=== PATIENT | male | born 1950 | race Caucasian/White ===

== ENCOUNTER 2024-06-14 12:11 | Inpatient (IN) | payer OTHER, MEDICARE ==
[~2024-06-14] VITALS: Ht 175.3 cm; Wt 84.4 kg
[2024-06-14] MEDS: VANCOMYCIN 1 GM in IV D5W 250 ML IV ONE (12:30)
[2024-06-14 12:40] LABS: BASOPHILS % (AUTO) 0.1 % (0.0-2.0); EOSINOPHILS % (AUTO) 0.3 % (0.0-6.0); HEMATOCRIT 33 % (39-51); HEMOGLOBIN 11.4 g/dL (13.5-17.5); LYMPHOCYTES # (AUTO) 0.3 K/uL (0.8-4.8); LYMPHOCYTES % (AUTO) 2.7 % (20.0-44.0); MEAN CORPUSCULAR HEMOGLOBIN 34 PG (26.0-33.0); MEAN CORPUSCULAR HGB CONC 34 g/dl (31.0-36.0); MEAN CORPUSCULAR VOLUME 98 fL (80-96); MONOCYTES # (AUTO) 1.2 K/uL (0.1-1.30); MONOCYTES % (AUTO) 10.4 % (2.0-12.0); NEUTROPHILS % (AUTO) 86.5 % (43.0-81.0); PLATELET COUNT (AUTO) 313 K/uL (150-450); RED BLOOD CELL COUNT(AUTO) 3.39 MIL/uL (4.5-6.0); RED CELL DISTRIBUTION WIDTH 12.9 % (11.5-15.0); WHITE BLOOD COUNT (AUTO) 11.5 K/uL (4.3-11.0)
[2024-06-14] MEDS: IV NS 0.9% 1,000 ML BAG IV ONE (12:46)
[2024-06-14 12:54] LABS: ABG BASE EXCESS 0.6 mmol/L (-2.0-3.0); ABG OXYGEN SATURATION 95.8 % (94.0-98.0); ABG PCO2 33.7 mmHg (35.0-48.0); ABG PH 7.468 (7.350-7.450); ABG PO2 87.8 mmHg (83.0-108.0); ABG TOTAL HEMOGLOBIN 11.6 G/dL (13.5-17.5); COHb 0.3 % (0.5-1.5); MetHb 0.2 % (0.0-1.5); O2Hb 95.3 % (94.0-97.0); PEEP,BG 5 cm H2O; SITE, ABG RIGHT RADIAL; VT, ABG 450 mL
[2024-06-14 13:03] LABS: LACTIC ACID 1.6 mmol/L (0.4-2.0)
[2024-06-14] MEDS: CEFEPIME 1 GM in IV D5W 50 ML IV ONE (13:07)
[2024-06-14 13:12] LABS: ALANINE AMINOTRANSFERASE 55 U/L (12-78); ALBUMIN 1.9 g/dL (3.4-5.0); ALKALINE PHOSPHATASE 294 U/L (46-116); ASPARTATE AMINOTRANSFERASE 57 U/L (15-37); BILIRUBIN,DIRECT 0.3 mg/dL (0.0-0.2); BILIRUBIN,TOTAL 0.5 mg/dL (0.2-1.0); CALCIUM, SERUM 9.2 mg/dL (8.5-10.1); CARBON DIOXIDE 32 mmol/L (21-32); CHLORIDE 104 mmol/L (98-107); CREATININE 0.8 mg/dL (0.6-1.3); GLUCOSE 143 mg/dL (74-106); POTASSIUM 4.1 mmol/L (3.5-5.1); SODIUM SERUM 141 mmol/L (136-145); TOTAL PROTEIN, SERUM 7.1 g/dL (6.4-8.2); UREA NITROGEN, BLOOD 21 mg/dL (7-18)
[2024-06-14 13:14] LABS: INR 1.18 (0.91-1.10); PARTIAL THROMBOPLASTIN TIME 26.5 SEC (24.3-34.3); PROTHROMBIN TIME 12.4 SECS (9.2-11.1)
[2024-06-14] MEDS ORDERED: ENOX40DI9 SQ (13:17)
[2024-06-14] MEDS ORDERED: CHLO118L3 MM (13:17)
[2024-06-14] MEDS ORDERED: OSMOLITE 1.5 GT (13:17)
[2024-06-14] MEDS ORDERED: DOCU100T2 GT (13:17)
[2024-06-14] MEDS ORDERED: LEVE100S GT (13:17)
[2024-06-14] MEDS ORDERED: FURO-145 GT (13:17)
[2024-06-14] MEDS ORDERED: AMIN30LI66 GT (13:17)
[2024-06-14] MEDS ORDERED: DOXA2TAB2 GT (13:17)
[2024-06-14] MEDS ORDERED: MAGN400O6 GT (13:17)
[2024-06-14] MEDS ORDERED: AMLO10TA4 GT (13:17)
[2024-06-14] MEDS ORDERED: CICL60SU2 TP (13:17)
[2024-06-14] MEDS ORDERED: CLOB10TA3 GT (13:17)
[2024-06-14] MEDS ORDERED: TAMS-12 GT (13:17)
[2024-06-14] MEDS ORDERED: FAMO20TA80 GT (13:17)
[2024-06-14] MEDS ORDERED: IPRA4AER IH ×2 (13:17)
[2024-06-14] MEDS ORDERED: METO25TA6 GT (13:17)
[2024-06-14] MEDS ORDERED: BETA45CR3 TP (13:17)
[2024-06-14] MEDS ORDERED: MULT-213 GT (13:17)
[2024-06-14] MEDS ORDERED: LACO10SO GT (13:17)
[2024-06-14] MEDS ORDERED: VALP250S4 GT (13:17)
[2024-06-14] MEDS ORDERED: CYAN-51 GT (13:17)
[2024-06-14] MEDS ORDERED: BISA10SU11 RC (13:17)
[2024-06-14] MEDS ORDERED: MERO1VIA23 IV (13:17)
[2024-06-14] MEDS ORDERED: ACET-868 GT (13:17)
[2024-06-14] MEDS ORDERED: NA P133E RC (13:17)
[2024-06-14] MEDS ORDERED: ASCO-340 GT (13:17)
[2024-06-14] MEDS ORDERED: ZINC50TA69 GT (13:17)
[2024-06-14] MEDS ORDERED: ACETAMINOPHEN 650 MG/20.3 ML UDC ONE (13:29)
[2024-06-14 13:38] LABS: APPEARANCE,URINE CLEAR (CLEAR); BILIRUBIN,URINE NEGATIVE (NEGATIVE); BLOOD, URINE 2+ Ery/uL (NEGATIVE); COLOR,URINE YELLOW (YELLOW); KETONES,URINE TRACE mg/dL (NEGATIVE); LEUKOCYTE ESTERASE ,URINE 1+ (NEGATIVE); NITRITE, URINE POSITIVE (NEGATIVE); PROTEIN,URINE TRACE mg/dl (NEGATIVE); UGLUCOSE NEGATIVE (NEGATIVE)
[2024-06-14] MEDS: ACETAMINOPHEN 160 MG/5 ML GT STA (13:43)
[2024-06-14 13:50] LABS: ADD URINE CULTURE YES; BACTERIA,URINE Few /HPF (None Seen); RBC,URINE 51-80 /HPF (0-2); SQUAMOUS EPITHELIAL CELL,UR None Seen /HPF (None Seen); WBC,URINE 21-50 /HPF (0-3)
[2024-06-14] MEDS ORDERED: ENOXAPARIN SODIUM 40 MG/0.4 ML DISP.SYRIN SQ ONE (15:27)
[2024-06-14] MEDS: ENOXAPARIN SODIUM 40 MG/0.4 ML DISP.SYRIN SQ SCH (15:31)
[2024-06-14] MEDS ORDERED: Z GUARD REMEDY 4 OZ OINT TP PRN (16:00)
[2024-06-14] MEDS ORDERED: BISACODYL SUPP (10 MG) 10 MG/SUPP.RECT SUPP.RECT RC PRN (16:00)
[2024-06-14] MEDS ORDERED: ONDANSETRON HCL/PF 4 MG/2 ML VIAL IVP PRN (16:00)
[2024-06-14] MEDS ORDERED: CLOBAZAM 10 MG GT SCH (17:00)
[2024-06-14 18:00] VITALS: BP 124/59; TEMP 98.1; O2SAT 98
[2024-06-14] MEDS: CHLORHEXIDINE GLUCONATE 4% 118 ML BOTTLE TP SCH (18:10)
[2024-06-14] MEDS: ASCORBIC ACID 500 MG TABLET GT SCH (18:10)
[2024-06-14] MEDS: VALPROIC ACID 250 MG/5 ML UDC GT SCH (18:10)
[2024-06-14] MEDS: PROSOURCE / PROSTAT (PYXIS) 30 ML UDC GT SCH (18:10)
[2024-06-14] MEDS: ZINC SULFATE 220 MG CAPSULE GT SCH (18:10)
[2024-06-14 20:00] VITALS: BP 127/69; TEMP 98.8; O2SAT 98
[2024-06-14] MEDS: VANCOMYCIN 1 GM in IV D5W 250 ML IV SCH (20:19)
[2024-06-14] MEDS: LEVETIRACETAM SOL (5 ML) 100 MG/ML UDC GT SCH (21:03)
[2024-06-14] MEDS: LACOSAMIDE ORAL SOLN 50 MG/5 ML UDC GT SCH (21:07)
[2024-06-14] MEDS: CEFEPIME 2 GM in IV D5W 100 ML IV SCH (21:08)
[2024-06-14] MEDS: DOXAZOSIN MESYLATE (1 MG) 1 MG TABLET GT SCH (21:39)
[2024-06-15] VITALS: BP 135/75; TEMP 98.8; O2SAT 98
[2024-06-15 04:00] VITALS: BP 122/70; TEMP 99.7; O2SAT 98
[2024-06-15 08:00] VITALS: BP 125/62; TEMP 98.6; O2SAT 99
[2024-06-15 08:19] LABS: BASOPHILS % (AUTO) 0.1 % (0.0-2.0); EOSINOPHILS # (AUTO) 0.2 K/uL (0.0-0.7); EOSINOPHILS % (AUTO) 2.2 % (0.0-6.0); HEMATOCRIT 30 % (39-51); LYMPHOCYTES # (AUTO) 1.1 K/uL (0.8-4.8); LYMPHOCYTES % (AUTO) 11.8 % (20.0-44.0); MEAN CORPUSCULAR HEMOGLOBIN 33 PG (26.0-33.0); MEAN CORPUSCULAR HGB CONC 34 g/dl (31.0-36.0); MEAN CORPUSCULAR VOLUME 99 fL (80-96); MONOCYTES % (AUTO) 11.1 % (2.0-12.0); NEUTROPHILS % (AUTO) 74.8 % (43.0-81.0); PLATELET COUNT (AUTO) 271 K/uL (150-450); RED BLOOD CELL COUNT(AUTO) 3.01 MIL/uL (4.5-6.0); RED CELL DISTRIBUTION WIDTH 13.3 % (11.5-15.0); WHITE BLOOD COUNT (AUTO) 9.3 K/uL (4.3-11.0)
[2024-06-15 08:28] LABS: CALCIUM, SERUM 8.8 mg/dL (8.5-10.1); CREATININE 0.8 mg/dL (0.6-1.3); MAGNESIUM 2.3 mg/dL (1.8-2.4); PHOSPHORUS 3.8 mg/dL (2.5-4.9); POTASSIUM 3.7 mmol/L (3.5-5.1)
[2024-06-15] MEDS: CYANOCOBALAMIN 500 MCG TABLET GT SCH (09:35)
[2024-06-15] MEDS: MULTIVIT W/MINERALS 1 TAB TABLET GT SCH (09:35)
[2024-06-15] MEDS: DOCUSATE SODIUM 100 MG CAPSULE PO SCH (09:35)
[2024-06-15] MEDS: PANTOPRAZOLE 40 MG/PACK PACK GT SCH (09:35)
[2024-06-15] MEDS: TAMSULOSIN 0.4 MG CAP.SR.24H GT SCH (09:36)
[2024-06-15] MEDS: FUROSEMIDE 20 MG TABLET GT SCH (09:36)
[2024-06-15] MEDS: ENOXAPARIN SODIUM 40 MG/0.4 ML DISP.SYRIN SQ SCH (09:36)
[2024-06-15] MEDS: DAKINS QUARTER STRENGTH (0.125%) 480 ML BOTTLE TOP SCH (11:42)
[2024-06-15 12:00] VITALS: BP 127/66; TEMP 99.4; O2SAT 98
[2024-06-15] MEDS: OSMOLITE 1.2 CAL 1,000 ML LIQUID GT PRN (13:07)
[2024-06-15 16:00] VITALS: BP 120/62; TEMP 101.2; O2SAT 99
[2024-06-15] MEDS: ACETAMINOPHEN 650 MG/20.3 ML UDC GT PRN (16:58)
[2024-06-15] MEDS: PROSOURCE / PROSTAT (PYXIS) 30 ML UDC GT SCH (17:02)
[2024-06-15 17:57] VITALS: TEMP 99.8
[2024-06-15 23:09] LABS: HIV-1 p24 ANTIGEN NON REACTIVE (NONREACTIVE); HIV-1/2 ANTIBODY NON REACTIVE (NONREACTIVE)
[2024-06-16 03:08] LABS: HEPATITIS B CORE AB, TOTAL Negative (Negative)
== END 2024-06-15 20:34 | disposition short-term general hospital (02) | DRG 871 ==
LOC: ER 12:15 → TELE-TD 17:07
PROVIDERS: ADMIT Nurse Practitioner Family; ATTEND Internal Medicine
PROC: 5A1945Z Respiratory Ventilation, 24-96 Consecutive Hours (ICD-10-PCS; principal; 2024-06-14)
DX: A41.9 Sepsis, unspecified organism (principal); E43 Unspecified severe protein-calorie malnutrition; L89.154 Pressure ulcer of sacral region, stage 4; G93.41 Metabolic encephalopathy; J95.851 Ventilator associated pneumonia; G93.1 Anoxic brain damage, not elsewhere classified; N39.0 Urinary tract infection, site not specified; Z99.11 Dependence on respirator [ventilator] status; J96.10 Chronic respiratory failure, unspecified whether with hypoxia or hypercapnia; Y84.8 Other medical procedures as the cause of abnormal reaction of the patient, or of later complication, without mention of misadventure at the time of the procedure; Y92.129 Unspecified place in nursing home as the place of occurrence of the external cause; G40.909 Epilepsy, unspecified, not intractable, without status epilepticus; K21.9 Gastro-esophageal reflux disease without esophagitis; Z20.822 Contact with and (suspected) exposure to COVID-19; N40.0 Benign prostatic hyperplasia without lower urinary tract symptoms; R13.10 Dysphagia, unspecified; Z86.74 Personal history of sudden cardiac arrest; Z86.718 Personal history of other venous thrombosis and embolism; Z79.01 Long term (current) use of anticoagulants; Z79.51 Long term (current) use of inhaled steroids; Z79.899 Other long term (current) drug therapy; Z93.1 Gastrostomy status; I10 Essential (primary) hypertension; E88.09 Other disorders of plasma-protein metabolism, not elsewhere classified; D64.9 Anemia, unspecified; B96.89 Other specified bacterial agents as the cause of diseases classified elsewhere; R73.9 Hyperglycemia, unspecified
CPT/HCPCS: 31720; 36415; 36600; 71045-TC; 80048-TC; 80076-TC; 81001; 82803-TC; 82962-TC; 83605-TC; 83735-TC; 84100-TC; 84484-TC; 85025-TC; 85730-TC; 86704; 86803; 87040-TC; 87340; 87806; 94002-TC; 94003-TC; 94760-TC; 94762-TC; 94799-TC; A4217; A4223; G0378; J0692; J1650; J1953; J3370; J7030; J7040; J7060